=== PATIENT | male | born 1940 | race Caucasian/White ===

== ENCOUNTER 2021-10-03 02:32 | Outpatient (RCR) | payer MEDICARE, BC, SELFPAY ==
[2021-10-03] MEDS: Normal Saline Flush 10 ML SYR IVP (07:31)
[2021-10-03 07:41] LABS: Abs Immature Grans 0.05 10^3/uL (0.0-0.06); Absolute Basophil Count 0.03 10^3/uL (0.0-0.2); Absolute Eosinophil Count 0.19 10^3/uL (0.0-0.7); Absolute Lymphocyte Count 1.36 10^3/uL (1.2-3.4); Basophils % 0.4; Eosinophils % 2.2; HCT 37.1 % (40.0-50.0); Immature Grans % 0.6; Lymphocytes % 15.9; MCH 29.7 pg (27.0-33.0); MCHC 32.3 % (32.0-36.0); MCV 92 fL (80-95); Monocytes % 12.9; Platelet Count 183 10^3/uL (130-400); RBC 4.04 10^6/uL (4.36-5.78); RDW 13.2 % (11.8-14.1); RDW-SD 45.3 fL; WBC 8.53 10^3/uL (4.4-10.8)
[2021-10-03 07:53] LABS: ALT 29 U/L (16-63); AST 15 U/L (15-37); Albumin 2.7 g/dL (3.4-5.0); Alkaline Phosphatase 70 U/L (46-116); Anion Gap 4.2 mmol/L (3-11); BUN 17 mg/dL (7-18); Bilirubin, Total 0.7 mg/dL (0.2-1.0); CO2 30.8 mmol/L (21.0-32.0); CREATININE 0.8 mg/dL (0.70-1.30); Calcium 8.5 mg/dL (8.5-10.1); Chloride 102 mmol/L (98-107); Glucose 107 mg/dL (74-106); LDH 239 U/L (85-227); Potassium 3.8 mmol/L (3.5-5.1); Sodium 137 mmol/L (136-145)
== END 2021-10-07 23:59 | disposition home or self-care (01) ==
LOC: INF 02:32
PROVIDERS: PCP Internal Medicine; Visit Provider Internal Medicine Hematology & Oncology
DX: Z45.2 Encounter for adjustment and management of vascular access device (principal); C83.38 Diffuse large B-cell lymphoma, lymph nodes of multiple sites
CPT/HCPCS: 36591; 80053; 83615; 85025

== ENCOUNTER 2021-10-24 02:05 | Outpatient (RCR) | payer MEDICARE, BC, SELFPAY ==
[2021-10-24] MEDS: Normal Saline Flush 10 ML SYR IV (07:41)
[2021-10-24 07:50] LABS: Abs Immature Grans 0.01 10^3/uL (0.0-0.06); HCT 31.3 % (40.0-50.0); MCH 29.7 pg (27.0-33.0); MCHC 31.9 % (32.0-36.0); MCV 93 fL (80-95); MPV 9.1 fL (8.0-11.0); Platelet Count 338 10^3/uL (130-400); RBC 3.37 10^6/uL (4.36-5.78); RDW 14.6 % (11.8-14.1); RDW-SD 45.2 fL
[2021-10-24 08:26] LABS: WBC 1.38 10^3/uL (4.4-10.8)
[2021-10-24 08:27] LABS: Absolute Eosinophil Count 0.06 10^3/uL (0.0-0.7); Absolute Lymphocyte Count 0.83 10^3/uL (1.2-3.4); Absolute Monocyte Count 0.22 10^3/uL (0.1-0.8); Absolute Neutrophil Count 0.21 10^3/uL (1.2-6.7); Metamyelocytes % 1; Other Cells % 4
[2021-10-24 09:16] LABS: ALT 41 U/L (16-63); AST 21 U/L (15-37); Alkaline Phosphatase 80 U/L (46-116); Anion Gap 5.7 mmol/L (3-11); BUN 13 mg/dL (7-18); Bilirubin, Total 0.2 mg/dL (0.2-1.0); CO2 32.3 mmol/L (21.0-32.0); Calcium 8.5 mg/dL (8.5-10.1); Chloride 107 mmol/L (98-107); Glucose 101 mg/dL (74-106); LDH 188 U/L (85-227); Potassium 3.8 mmol/L (3.5-5.1); Sodium 145 mmol/L (136-145); Total Protein 6.6 g/dL (6.4-8.2)
== END 2021-11-07 23:59 | disposition home or self-care (01) ==
LOC: INF 02:05
PROVIDERS: PCP Internal Medicine; Visit Provider Internal Medicine Hematology & Oncology
DX: Z45.2 Encounter for adjustment and management of vascular access device (principal); C83.38 Diffuse large B-cell lymphoma, lymph nodes of multiple sites
CPT/HCPCS: 36591; 80053; 83615; 85025

== ENCOUNTER 2021-12-05 02:50 | Outpatient (RCR) | payer MEDICARE, BC, SELFPAY ==
[2021-11-14] MEDS: Normal Saline Flush 10 ML SYR IVP (08:35)
[2021-11-14 09:13] LABS: Abs Immature Grans 0.01 10^3/uL (0.0-0.06); Absolute Basophil Count 0.01 10^3/uL (0.0-0.2); Absolute Eosinophil Count 0.11 10^3/uL (0.0-0.7); Absolute Monocyte Count 0.07 10^3/uL (0.1-0.8); Absolute Neutrophil Count 1.46 10^3/uL (1.2-6.7); Basophils % 0.4; Eosinophils % 4.1; HCT 32.4 % (40.0-50.0); HGB 10.7 g/dL (13.5-17.5); Immature Grans % 0.4; Lymphocytes % 37.6; MCH 30.6 pg (27.0-33.0); MCV 93 fL (80-95); MPV 10.5 fL (8.0-11.0); Monocytes % 2.6; Neutrophils % 54.9; Platelet Count 186 10^3/uL (130-400); RDW 17.7 % (11.8-14.1); RDW-SD 60.5 fL; WBC 2.66 10^3/uL (4.4-10.8)
[2021-11-14 09:33] LABS: ALT 30 U/L (16-63); AST 13 U/L (15-37); Albumin 3.4 g/dL (3.4-5.0); Alkaline Phosphatase 68 U/L (46-116); Anion Gap 2.2 mmol/L (3-11); BUN 22 mg/dL (7-18); Bilirubin, Total 0.9 mg/dL (0.2-1.0); CO2 33.8 mmol/L (21.0-32.0); CREATININE 0.8 mg/dL (0.70-1.30); Calcium 8.7 mg/dL (8.5-10.1); Chloride 104 mmol/L (98-107); Estimated GFR 89.47 (mL/min/1.73m2); Glucose 100 mg/dL (74-106); LDH 156 U/L (85-227); Potassium 3.7 mmol/L (3.5-5.1); Sodium 140 mmol/L (136-145); Total Protein 6.6 g/dL (6.4-8.2)
[2021-11-28] MEDS: Normal Saline Flush 10 ML SYR IVP (07:13)
[2021-11-28 07:25] LABS: Abs Immature Grans 0.14 10^3/uL (0.0-0.06); Absolute Basophil Count 0.04 10^3/uL (0.0-0.2); Absolute Lymphocyte Count 1.02 10^3/uL (1.2-3.4); Absolute Monocyte Count 1.26 10^3/uL (0.1-0.8); Absolute Neutrophil Count 6.78 10^3/uL (1.2-6.7); Basophils % 0.4; Eosinophils % 1.1; HCT 30.1 % (40.0-50.0); HGB 9.6 g/dL (13.5-17.5); Immature Grans % 1.5; Lymphocytes % 10.9; MCH 31.5 pg (27.0-33.0); MCHC 31.9 % (32.0-36.0); MCV 99 fL (80-95); MPV 9.9 fL (8.0-11.0); Monocytes % 13.5; Neutrophils % 72.6; Platelet Count 362 10^3/uL (130-400); RBC 3.05 10^6/uL (4.36-5.78); RDW 20.6 % (11.8-14.1); RDW-SD 73.6 fL; WBC 9.34 10^3/uL (4.4-10.8)
[2021-11-28 07:38] LABS: Anisocytosis 2+; Diff Comment RBC Morph Reviewed; Polychromasia Present
[2021-11-28 07:42] LABS: ALT 31 U/L (16-63); AST 20 U/L (15-37); Albumin 3.4 g/dL (3.4-5.0); Alkaline Phosphatase 114 U/L (46-116); Anion Gap 6.3 mmol/L (3-11); BUN 11 mg/dL (7-18); Bilirubin, Total 0.2 mg/dL (0.2-1.0); CO2 30.7 mmol/L (21.0-32.0); CREATININE 0.9 mg/dL (0.70-1.30); Calcium 8.8 mg/dL (8.5-10.1); Chloride 106 mmol/L (98-107); Estimated GFR 86.34 (mL/min/1.73m2); Glucose 110 mg/dL (74-106); LDH 180 U/L (85-227); Potassium 3.9 mmol/L (3.5-5.1); Sodium 143 mmol/L (136-145); Total Protein 6.5 g/dL (6.4-8.2)
[2021-12-05] MEDS: Normal Saline Flush 10 ML SYR IVP (07:36)
[2021-12-05 07:58] LABS: Abs Immature Grans 0.04 10^3/uL (0.0-0.06); Absolute Eosinophil Count 0.04 10^3/uL (0.0-0.7); Absolute Lymphocyte Count 1.14 10^3/uL (1.2-3.4); Absolute Monocyte Count 0.27 10^3/uL (0.1-0.8); Absolute Neutrophil Count 3.43 10^3/uL (1.2-6.7); Eosinophils % 0.8; HCT 30.5 % (40.0-50.0); Immature Grans % 0.8; Lymphocytes % 23.2; MCH 31.4 pg (27.0-33.0); MCHC 32.8 % (32.0-36.0); MCV 96 fL (80-95); MPV 9.7 fL (8.0-11.0); Monocytes % 5.5; Neutrophils % 69.7; Platelet Count 246 10^3/uL (130-400); RBC 3.18 10^6/uL (4.36-5.78); RDW 19.1 % (11.8-14.1); RDW-SD 67.4 fL; WBC 4.92 10^3/uL (4.4-10.8)
[2021-12-05 08:15] LABS: ALT 36 U/L (16-63); AST 15 U/L (15-37); Albumin 3.5 g/dL (3.4-5.0); Alkaline Phosphatase 78 U/L (46-116); Anion Gap 5.2 mmol/L (3-11); BUN 21 mg/dL (7-18); Bilirubin, Total 0.6 mg/dL (0.2-1.0); CO2 31.8 mmol/L (21.0-32.0); CREATININE 0.8 mg/dL (0.70-1.30); Calcium 8.5 mg/dL (8.5-10.1); Chloride 102 mmol/L (98-107); Estimated GFR 89.47 (mL/min/1.73m2); Glucose 101 mg/dL (74-106); LDH 170 U/L (85-227); Potassium 3.6 mmol/L (3.5-5.1); Sodium 139 mmol/L (136-145); Total Protein 6.2 g/dL (6.4-8.2)
== END 2021-12-07 23:59 | disposition home or self-care (01) ==
LOC: INF 02:50
PROVIDERS: PCP Internal Medicine; Visit Provider Internal Medicine Hematology & Oncology
DX: Z45.2 Encounter for adjustment and management of vascular access device (principal); C83.38 Diffuse large B-cell lymphoma, lymph nodes of multiple sites
CPT/HCPCS: 36591; 80053; 83615; 85025

== ENCOUNTER 2021-12-26 02:11 | Outpatient (RCR) | payer MEDICARE, BC, SELFPAY ==
[2021-12-19] MEDS: Normal Saline Flush 10 ML SYR IVP (07:40)
[2021-12-19 07:50] LABS: Abs Immature Grans 0.41 10^3/uL (0.0-0.06); Absolute Eosinophil Count 0.11 10^3/uL (0.0-0.7); Absolute Monocyte Count 1.39 10^3/uL (0.1-0.8); Absolute Neutrophil Count 7.77 10^3/uL (1.2-6.7); Basophils % 0.5; HCT 31.2 % (40.0-50.0); Immature Grans % 3.7; Lymphocytes % 11.1; MCH 32.4 pg (27.0-33.0); MCHC 32.1 % (32.0-36.0); MCV 101 fL (80-95); MPV 9.9 fL (8.0-11.0); Monocytes % 12.7; Nucleated RBC 0.2 % (0.0-0.3); Platelet Count 272 10^3/uL (130-400); RBC 3.09 10^6/uL (4.36-5.78); RDW-SD 73.9 fL; WBC 10.95 10^3/uL (4.4-10.8)
[2021-12-19 07:58] LABS: Absolute Basophil Count 0.05 10^3/uL (0.0-0.2); Absolute Lymphocyte Count 1.22 10^3/uL (1.2-3.4)
[2021-12-19 08:13] LABS: ALT 27 U/L (16-63); AST 16 U/L (15-37); Albumin 3.6 g/dL (3.4-5.0); Alkaline Phosphatase 111 U/L (46-116); Anion Gap 5.5 mmol/L (3-11); BUN 13 mg/dL (7-18); Bilirubin, Total 0.2 mg/dL (0.2-1.0); CO2 31.5 mmol/L (21.0-32.0); CREATININE 0.8 mg/dL (0.70-1.30); Calcium 8.6 mg/dL (8.5-10.1); Chloride 106 mmol/L (98-107); Estimated GFR 88.91 (mL/min/1.73m2); Glucose 95 mg/dL (74-106); LDH 180 U/L (85-227); Potassium 3.8 mmol/L (3.5-5.1); Sodium 143 mmol/L (136-145); Total Protein 6.4 g/dL (6.4-8.2)
[2021-12-26] MEDS: Normal Saline Flush 10 ML SYR IVP (07:38)
[2021-12-26 07:57] LABS: Abs Immature Grans 0.02 10^3/uL (0.0-0.06); Absolute Basophil Count 0.05 10^3/uL (0.0-0.2); Absolute Eosinophil Count 0.03 10^3/uL (0.0-0.7); Absolute Monocyte Count 0.36 10^3/uL (0.1-0.8); Absolute Neutrophil Count 1.95 10^3/uL (1.2-6.7); Basophils % 1.6; HCT 28.8 % (40.0-50.0); HGB 9.3 g/dL (13.5-17.5); Immature Grans % 0.6; Lymphocytes % 22.5; MCH 32.4 pg (27.0-33.0); MCHC 32.3 % (32.0-36.0); MCV 100 fL (80-95); MPV 9.7 fL (8.0-11.0); Monocytes % 11.6; Neutrophils % 62.7; Platelet Count 198 10^3/uL (130-400); RBC 2.87 10^6/uL (4.36-5.78); RDW 17.6 % (11.8-14.1); RDW-SD 65.4 fL; WBC 3.11 10^3/uL (4.4-10.8)
[2021-12-26 08:16] LABS: ALT 67 U/L (16-63); AST 44 U/L (15-37); Albumin 3.6 g/dL (3.4-5.0); Alkaline Phosphatase 81 U/L (46-116); BUN 16 mg/dL (7-18); Bilirubin, Total 0.5 mg/dL (0.2-1.0); CREATININE 0.7 mg/dL (0.70-1.30); Calcium 8.7 mg/dL (8.5-10.1); Chloride 108 mmol/L (98-107); Estimated GFR 92.57 (mL/min/1.73m2); Glucose 96 mg/dL (74-106); LDH 194 U/L (85-227); Sodium 144 mmol/L (136-145); Total Protein 6.4 g/dL (6.4-8.2)
== END 2022-01-07 23:59 | disposition home or self-care (01) ==
LOC: INF 02:11
PROVIDERS: PCP Internal Medicine; Visit Provider Internal Medicine Hematology & Oncology
DX: C83.38 Diffuse large B-cell lymphoma, lymph nodes of multiple sites (principal); Z45.2 Encounter for adjustment and management of vascular access device
CPT/HCPCS: 36591; 80053; 83615; 85025

== ENCOUNTER 2022-01-30 10:00 | Outpatient (RCR) | payer MEDICARE, BC, SELFPAY ==
[2022-01-09] MEDS: Normal Saline Flush 10 ML SYR IVP (07:38)
[2022-01-09 07:48] LABS: Abs Immature Grans 0.03 10^3/uL (0.0-0.06); Absolute Basophil Count 0.02 10^3/uL (0.0-0.2); Absolute Eosinophil Count 0.11 10^3/uL (0.0-0.7); Absolute Lymphocyte Count 0.72 10^3/uL (1.2-3.4); Absolute Monocyte Count 0.74 10^3/uL (0.1-0.8); Absolute Neutrophil Count 2.94 10^3/uL (1.2-6.7); Basophils % 0.4; Eosinophils % 2.4; HCT 25.9 % (40.0-50.0); HGB 8.4 g/dL (13.5-17.5); Immature Grans % 0.7; Lymphocytes % 15.8; MCH 33.3 pg (27.0-33.0); MCHC 32.4 % (32.0-36.0); MCV 103 fL (80-95); MPV 10.6 fL (8.0-11.0); Monocytes % 16.2; Neutrophils % 64.5; Platelet Count 132 10^3/uL (130-400); RBC 2.52 10^6/uL (4.36-5.78); RDW 17.8 % (11.8-14.1); RDW-SD 66.3 fL; WBC 4.56 10^3/uL (4.4-10.8)
[2022-01-09 08:05] LABS: ALT 25 U/L (16-63); AST 17 U/L (15-37); Albumin 3.6 g/dL (3.4-5.0); Alkaline Phosphatase 103 U/L (46-116); Anion Gap 3.7 mmol/L (3-11); BUN 13 mg/dL (7-18); Bilirubin, Total 0.4 mg/dL (0.2-1.0); CO2 31.3 mmol/L (21.0-32.0); CREATININE 0.8 mg/dL (0.70-1.30); Calcium 8.7 mg/dL (8.5-10.1); Chloride 107 mmol/L (98-107); Estimated GFR 88.91 (mL/min/1.73m2); Glucose 95 mg/dL (74-106); LDH 159 U/L (85-227); Potassium 3.8 mmol/L (3.5-5.1); Sodium 142 mmol/L (136-145); Total Protein 6.4 g/dL (6.4-8.2)
[2022-01-16] MEDS: Normal Saline Flush 10 ML SYR IVP (07:53)
[2022-01-16 08:06] LABS: Abs Immature Grans 0.03 10^3/uL (0.0-0.06); Absolute Basophil Count 0.03 10^3/uL (0.0-0.2); Absolute Eosinophil Count 0.06 10^3/uL (0.0-0.7); Absolute Lymphocyte Count 0.51 10^3/uL (1.2-3.4); Absolute Monocyte Count 0.21 10^3/uL (0.1-0.8); Absolute Neutrophil Count 1.83 10^3/uL (1.2-6.7); Basophils % 1.1; Eosinophils % 2.2; HCT 24.4 % (40.0-50.0); Immature Grans % 1.1; Lymphocytes % 19.1; MCH 34.5 pg (27.0-33.0); MCHC 32.8 % (32.0-36.0); MCV 105 fL (80-95); Monocytes % 7.9; Neutrophils % 68.6; Platelet Count 146 10^3/uL (130-400); RBC 2.32 10^6/uL (4.36-5.78); RDW 16.1 % (11.8-14.1); RDW-SD 62.4 fL; WBC 2.67 10^3/uL (4.4-10.8)
[2022-01-16 08:16] LABS: ALT 50 U/L (16-63); AST 38 U/L (15-37); Albumin 3.7 g/dL (3.4-5.0); Alkaline Phosphatase 88 U/L (46-116); Anion Gap 7.7 mmol/L (3-11); BUN 20 mg/dL (7-18); Bilirubin, Total 0.4 mg/dL (0.2-1.0); CO2 30.3 mmol/L (21.0-32.0); CREATININE 0.7 mg/dL (0.70-1.30); Calcium 8.6 mg/dL (8.5-10.1); Chloride 107 mmol/L (98-107); Estimated GFR 92.57 (mL/min/1.73m2); Glucose 104 mg/dL (74-106); LDH 174 U/L (85-227); Potassium 3.6 mmol/L (3.5-5.1); Sodium 145 mmol/L (136-145); Total Protein 6.3 g/dL (6.4-8.2)
[2022-01-30] MEDS: Normal Saline Flush 10 ML SYR IVP ×2 (08:10→10:15)
[2022-01-30 08:29] LABS: Abs Immature Grans 0.03 10^3/uL (0.0-0.06); Absolute Basophil Count 0.03 10^3/uL (0.0-0.2); Absolute Eosinophil Count 0.13 10^3/uL (0.0-0.7); Absolute Lymphocyte Count 0.74 10^3/uL (1.2-3.4); Absolute Monocyte Count 1.09 10^3/uL (0.1-0.8); Absolute Neutrophil Count 3.78 10^3/uL (1.2-6.7); Basophils % 0.5; Eosinophils % 2.2; HGB 7.4 g/dL (13.5-17.5); Immature Grans % 0.5; Lymphocytes % 12.8; MCH 34.6 pg (27.0-33.0); MCHC 32.2 % (32.0-36.0); MCV 108 fL (80-95); Monocytes % 18.8; Neutrophils % 65.2; Platelet Count 171 10^3/uL (130-400); RBC 2.14 10^6/uL (4.36-5.78); RDW 16.5 % (11.8-14.1); RDW-SD 61.9 fL
[2022-01-30 08:49] LABS: ALT 21 U/L (16-63); AST 20 U/L (15-37); Albumin 3.6 g/dL (3.4-5.0); Alkaline Phosphatase 98 U/L (46-116); BUN 13 mg/dL (7-18); Bilirubin, Total 0.3 mg/dL (0.2-1.0); CREATININE 0.8 mg/dL (0.70-1.30); Calcium 8.5 mg/dL (8.5-10.1); Chloride 105 mmol/L (98-107); Estimated GFR 88.91 (mL/min/1.73m2); Glucose 94 mg/dL (74-106); LDH 158 U/L (85-227); Potassium 3.6 mmol/L (3.5-5.1); Sodium 141 mmol/L (136-145); Total Protein 6.3 g/dL (6.4-8.2)
[2022-01-30 10:30] VITALS: BP 131/64; PULSE 64; RESP 16; TEMP 36.6; O2SAT 93
[2022-01-30 10:45] VITALS: BP 107/57; PULSE 61; RESP 16; TEMP 36.9; O2SAT 94
[2022-01-30 11:00] VITALS: BP 110/51; PULSE 60; RESP 16; TEMP 36.7; O2SAT 93
[2022-01-30 11:30] VITALS: BP 114/52; PULSE 63; RESP 17; TEMP 36.5; O2SAT 94
[2022-01-30 12:35] VITALS: BP 128/60; PULSE 56; RESP 17; TEMP 37; O2SAT 96
[2022-01-30] MEDS: Heparin 500 UNITS/5 ML SYRINGE IV (12:35)
== END 2022-02-06 23:59 | disposition home or self-care (01) ==
LOC: INF 10:00
PROVIDERS: PCP Internal Medicine; Visit Provider Internal Medicine Hematology & Oncology
DX: C83.38 Diffuse large B-cell lymphoma, lymph nodes of multiple sites (principal); Z45.2 Encounter for adjustment and management of vascular access device
CPT/HCPCS: 36430; 36591; 80053; 86850; 86900; 86901; 86920; 83615; 85025; P9016

== ENCOUNTER 2022-02-19 01:52 | Outpatient (RCR) | payer MEDICARE, BC, SELFPAY ==
[2022-02-07 00:15] VITALS: BP 128/60; PULSE 56; RESP 17; TEMP 37
[2022-02-19] MEDS: Normal Saline Flush 10 ML SYR IVP (10:10)
[2022-02-19 10:23] LABS: Abs Immature Grans 0.01 10^3/uL (0.0-0.06); Absolute Basophil Count 0.05 10^3/uL (0.0-0.2); Absolute Lymphocyte Count 0.59 10^3/uL (1.2-3.4); Absolute Monocyte Count 0.68 10^3/uL (0.1-0.8); Absolute Neutrophil Count 2.26 10^3/uL (1.2-6.7); Basophils % 1.4; Eosinophils % 2.7; HCT 34.4 % (40.0-50.0); HGB 10.8 g/dL (13.5-17.5); Immature Grans % 0.3; MCH 33.1 pg (27.0-33.0); MCHC 31.4 % (32.0-36.0); MCV 106 fL (80-95); MPV 10.2 fL (8.0-11.0); Monocytes % 18.4; Neutrophils % 61.2; Platelet Count 158 10^3/uL (130-400); RBC 3.26 10^6/uL (4.36-5.78); RDW 14.2 % (11.8-14.1); RDW-SD 55.5 fL; WBC 3.69 10^3/uL (4.4-10.8)
[2022-02-19] MEDS: Heparin 500 UNITS/5 ML SYRINGE IV (10:31)
[2022-02-19 10:40] LABS: ALT 19 U/L (16-63); AST 20 U/L (15-37); Albumin 3.8 g/dL (3.4-5.0); Alkaline Phosphatase 73 U/L (46-116); Anion Gap 5.9 mmol/L (3-11); BUN 16 mg/dL (7-18); Bilirubin, Total 0.6 mg/dL (0.2-1.0); CO2 30.1 mmol/L (21.0-32.0); CREATININE 0.8 mg/dL (0.70-1.30); Calcium 8.7 mg/dL (8.5-10.1); Chloride 104 mmol/L (98-107); Estimated GFR 88.91 (mL/min/1.73m2); Glucose 102 mg/dL (74-106); LDH 142 U/L (85-227); Potassium 3.8 mmol/L (3.5-5.1); Sodium 140 mmol/L (136-145); Total Protein 6.8 g/dL (6.4-8.2)
== END 2022-03-09 23:59 | disposition home or self-care (01) ==
LOC: INF 01:52
PROVIDERS: PCP Internal Medicine; Visit Provider Internal Medicine Hematology & Oncology
DX: D63.8 Anemia in other chronic diseases classified elsewhere (principal); Z45.2 Encounter for adjustment and management of vascular access device
CPT/HCPCS: 36591; 80053; 86900; 86901; 83615; 85025

== ENCOUNTER 2022-05-08 02:18 | Outpatient (RCR) | payer MEDICARE, BC, SELFPAY ==
[2022-05-08 10:39] LABS: Absolute Basophil Count 0.04 10^3/uL (0.0-0.2); Absolute Eosinophil Count 0.18 10^3/uL (0.0-0.7); Absolute Monocyte Count 0.56 10^3/uL (0.1-0.8); Absolute Neutrophil Count 2.19 10^3/uL (1.2-6.7); Basophils % 1.1; Eosinophils % 4.9; HCT 39.5 % (40.0-50.0); HGB 12.9 g/dL (13.5-17.5); Lymphocytes % 19.1; MCH 31.3 pg (27.0-33.0); MCHC 32.7 % (32.0-36.0); MCV 96 fL (80-95); MPV 10.2 fL (8.0-11.0); Monocytes % 15.3; Neutrophils % 59.6; Platelet Count 143 10^3/uL (130-400); RBC 4.12 10^6/uL (4.36-5.78); RDW 12.1 % (11.8-14.1); RDW-SD 42.8 fL; WBC 3.67 10^3/uL (4.4-10.8)
[2022-05-08] MEDS: Normal Saline Flush 10 ML SYR IVP (10:39)
[2022-05-08] MEDS: Heparin 500 UNITS/5 ML SYRINGE IV (10:39)
[2022-05-08 11:03] LABS: ALT 22 U/L (16-63); AST 19 U/L (15-37); Albumin 3.7 g/dL (3.4-5.0); Alkaline Phosphatase 69 U/L (46-116); Anion Gap 5.4 mmol/L (3-11); BUN 15 mg/dL (7-18); Bilirubin, Total 0.6 mg/dL (0.2-1.0); CO2 30.6 mmol/L (21.0-32.0); Calcium 8.8 mg/dL (8.5-10.1); Chloride 105 mmol/L (98-107); Estimated GFR 75.61 (mL/min/1.73m2); Glucose 121 mg/dL (74-106); LDH 147 U/L (85-227); Potassium 3.7 mmol/L (3.5-5.1); Sodium 141 mmol/L (136-145); Total Protein 6.8 g/dL (6.4-8.2)
== END 2022-06-07 23:59 | disposition home or self-care (01) ==
LOC: INF 02:18
PROVIDERS: PCP Internal Medicine; Visit Provider Internal Medicine Hematology & Oncology
DX: C83.38 Diffuse large B-cell lymphoma, lymph nodes of multiple sites (principal); Z45.2 Encounter for adjustment and management of vascular access device
CPT/HCPCS: 36591; 80053; 83615; 85025

== ENCOUNTER 2023-04-16 02:27 | Outpatient (RCR) | payer MEDICARE, BC, SELFPAY ==
[2023-04-16 10:45] LABS: Abs Immature Grans 0.01 10^3/uL (0.0-0.06); Absolute Basophil Count 0.03 10^3/uL (0.0-0.2); Absolute Lymphocyte Count 0.79 10^3/uL (1.2-3.4); Absolute Monocyte Count 0.51 10^3/uL (0.1-0.8); Absolute Neutrophil Count 2.12 10^3/uL (1.2-6.7); Basophils % 0.8; Eosinophils % 2.8; HCT 40.3 % (40.0-50.0); HGB 13.6 g/dL (13.5-17.5); Immature Grans % 0.3; Lymphocytes % 22.2; MCH 32.6 pg (27.0-33.0); MCHC 33.7 % (32.0-36.0); MCV 97 fL (80-95); MPV 10.3 fL (8.0-11.0); Monocytes % 14.3; Neutrophils % 59.6; Platelet Count 139 10^3/uL (130-400); RBC 4.17 10^6/uL (4.36-5.78); RDW 11.9 % (11.8-14.1); RDW-SD 42.5 fL; WBC 3.56 10^3/uL (4.4-10.8)
[2023-04-16 10:58] LABS: ALT 24 U/L (16-63); AST 18 U/L (15-37); Albumin 3.7 g/dL (3.4-5.0); Alkaline Phosphatase 56 U/L (46-116); Anion Gap 6.2 mmol/L (3-11); BUN 16 mg/dL (7-18); Bilirubin, Total 0.8 mg/dL (0.2-1.0); CO2 29.8 mmol/L (21.0-32.0); CREATININE 0.9 mg/dL (0.70-1.30); Calcium 8.8 mg/dL (8.5-10.1); Chloride 106 mmol/L (98-107); Estimated GFR 85.27 (mL/min/1.73m2); Glucose 102 mg/dL (74-106); LDH 149 U/L (85-227); Potassium 3.9 mmol/L (3.5-5.1); Sodium 142 mmol/L (136-145); Total Protein 7.1 g/dL (6.4-8.2)
[2023-04-16] MEDS: Normal Saline Flush 10 ML SYR IVP (11:12)
== END 2023-05-08 23:59 | disposition home or self-care (01) ==
LOC: INF 02:27
PROVIDERS: PCP Internal Medicine; Visit Provider Internal Medicine Hematology & Oncology
DX: C83.38 Diffuse large B-cell lymphoma, lymph nodes of multiple sites (principal); Z45.2 Encounter for adjustment and management of vascular access device
CPT/HCPCS: 36591; 80053; 83615; 85025

== ENCOUNTER 2024-01-26 00:55 | Outpatient (CLI) | payer MEDICARE, BC, SELFPAY ==
[2024-01-26] MEDS: Omnipaque 350 MG/ML 500 ML BTL-Imaging package IJ (10:10)
[2024-01-26] MEDS: Normal Saline - Diluent 50 ML VIAL IJ (10:12)
--- NOTE | 2024-01-26 10:25 | DI.CT_ITS ---
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 TECHNIQUE: Multi planar reconstructions were performed. CONTRAST MATERIAL: Omnipaque 350; 75 cc COMPARISON: CT CT CHEST ABDOMEN PELVIS W CONTRAST (GENERIC) from 05/19/2023 FINDINGS: CHEST: LUNGS: Previously described bandlike infiltrate in the right lower lobe is again noted. It has sligh tly decreased in size in the lateral basal segment of the right lower lobe but slightly increased in size in the posterior basal segment of the right lower lobe. It is again not associated with the ple ural effusion. Two benign fissure related nodules in the right lung are unchanged. There are no new significant findings in the right upper lobe and right middle lobe. Although this is a non CT a study, on a few images there is suggestion of possible pulmonary emboli i n right lower lobe vessels. In the opposite-left lung the amount of atelectasis in the lingular segment has slightly decreased. There are no new areas of infiltrate in the left lung and no pleural effusion. No new findings in th e trachea and mainstem bronchi. MEDIASTINUM: There is no hilar nor mediastinal adenopathy. Visualized thyroid unremarkable.Distal tip of the right-sided Port-A-Cath is in the upper right atrium CARDIAC: Heart size is normal. There is no pericardial effusion.Caliber of the thoracic aorta is wit hin upper normal limits. VISUALIZED UPPER ABDOMEN:There are no significant adrenal masses. Spleen size normal. Gallbladder s urgically absent. OSSEOUS: No significant osseous lesions.No fractures. . IMPRESSION: 1. Compared to the outside CT scan of 05/19/2023 the right lower lobe infiltrate has slightly changed in that the amount in the lateral basal segment of the right lower lobe has decreased but the amount in the posterior basal segment of the right lower lobe has slightly increased. Overall size is rela tively similar to previous. 2. Mild atelectasis in the lingular segment of the left lung again noted. No new left lung findings. 3. No pleural effusions on either side. No hilar nor mediastinal adenopathy evident. 4. Although this is not a CT a study, there is subtle suggestion of intraluminal filling defects in right lower lobe vessels which may indicate presence of pulmonary emboli. Appropriate further imagin g recommended. RADIATION DOSE DELIVERED: 193.56mGy.cm Total DLP DATA REPOSITORY: All CT scans at this facility are submitted to the National Radiology Data Registry (NRDR) Dose Index Registry (DIR) with the [employer] ([employer]). RADIATION OPTIMIZATION: All CT scans at this facility use at least one of these dose optimization te chniques: automated exposure control; mA and/or kV adjustment per patient size (includes targeted exa ms where dose is matched to clinical indication); or iterative reconstruction.
== END 2024-01-26 01:15 ==
LOC: DI 00:55
PROVIDERS: PCP Emergency Medicine Undersea and Hyperbaric Medicine; Visit Provider Internal Medicine Hematology & Oncology
DX: J18.9 Pneumonia, unspecified organism (principal); C83.38 Diffuse large B-cell lymphoma, lymph nodes of multiple sites
CPT/HCPCS: 36591; 80053; 71260; 83615; 85025

== ENCOUNTER 2024-01-28 13:28 | Outpatient (CLI) | payer MEDICARE, BC, SELFPAY ==
--- NOTE | 2024-01-28 | DI.CT_ITS ---
Exam(s) CT CHEST PE CTA EXAM: CT CHEST PE CTA CLINICAL HISTORY: J18.9,C83.38 FU concern RLL PE seen on noncontrast CT 01-26-24. TECHNIQUE: Imaging Protocol: CT angiography of the chest was performed using pulmonary embolus eliseo col. Multi planar reconstructions were performed. CONTRAST MATERIAL: Intravenous: Omnipaque 350 Contrast volume: 100 cc COMPARISON: CT CT CHEST W from 01/26/2024 FINDINGS: CHEST: PULMONARY ARTERIES: There are no intraluminal filling defects to suggest acute pulmonary emboli.The a jesús of concern described on the recent contrast infused but non CTA study of 01/26/2024 does not exhi bit evidence of significant intraluminal filling defect on the present dedicated CT angiogram study. Also no intraluminal filling defects elsewhere in either lung field. LUNGS: The bandlike infiltrate in the right lower lobe is again noted, unchanged from 01/26/2024. No associated pleural effusion. No findings in the right upper and right middle lobes. Two small lizz gn-appearing fissure related right lung nodules are unchanged. In the opposite-left lung the amount of atelectasis in the lingular segment appears unchanged. No ad ditional new left lung findings. No pleural effusions on either side. No significant findings in th e trachea and mainstem bronchi. MEDIASTINUM: There is no hilar nor mediastinal adenopathy. Visualized thyroid unremarkable. CARDIAC: Heart size is upper normal. There is no pericardial effusion.Caliber of the thoracic aorta is within normal limits. There is no significant shift of the interventricular septum. PARTIALLY VISUALIZED UPPERMOST ABDOMEN: Gallbladder is again noted be surgically absent. No adrenal findings. OSSEOUS: No significant osseous lesions.. IMPRESSION: 1. No evidence of acute pulmonary emboli. 2. Other findings as above which are unchanged from recent CT scan of 01/26/2024 3. There are no pleural effusions. RADIATION DOSE DELIVERED: 139.21mGy.cm Total DLP DATA REPOSITORY: All CT scans at this facility are submitted to the National Radiology Data Registry (NRDR) Dose Index Registry (DIR) with the [employer] ([employer]). RADIATION OPTIMIZATION: All CT scans at this facility use at least one of these dose optimization te chniques: automated exposure control; mA and/or kV adjustment per patient size (includes targeted exa ms where dose is matched to clinical indication); or iterative reconstruction.
[2024-01-28] MEDS: Normal Saline - Diluent 50 ML VIAL IJ (15:04)
[2024-01-28] MEDS: Omnipaque 350 MG/ML 100 ML BTL IJ (15:05)
== END 2024-01-28 13:48 ==
LOC: DI 13:29
PROVIDERS: PCP Emergency Medicine Undersea and Hyperbaric Medicine; Visit Provider Internal Medicine Hematology & Oncology
DX: J18.9 Pneumonia, unspecified organism (principal); C83.38 Diffuse large B-cell lymphoma, lymph nodes of multiple sites
CPT/HCPCS: 71275; 96523; J3490

== ENCOUNTER 2024-01-28 14:00 | Outpatient (RCR) | payer MEDICARE, BC, SELFPAY ==
[2024-01-26] MEDS: Normal Saline Flush 10 ML SYR IVP (09:12)
[2024-01-26 09:39] LABS: ALT 23 U/L (16-63); AST 19 U/L (15-37); Albumin 3.7 g/dL (3.4-5.0); Alkaline Phosphatase 63 U/L (46-116); Anion Gap 4.4 mmol/L (3-11); BUN 16 mg/dL (7-18); Bilirubin, Total 0.76 mg/dL (0.2-1.0); CO2 31.6 mmol/L (21.0-32.0); CREATININE 0.9 mg/dL (0.70-1.30); Calcium 8.8 mg/dL (8.5-10.1); Chloride 107 mmol/L (98-107); Estimated GFR 84.74 (mL/min/1.73m2); Glucose 97 mg/dL (74-106); LDH 150 U/L (85-227); Potassium 3.9 mmol/L (3.5-5.1); Sodium 143 mmol/L (136-145); Total Protein 7.3 g/dL (6.4-8.2)
== END 2024-02-07 23:59 | disposition home or self-care (01) ==
LOC: INF 14:00
PROVIDERS: Nurse Practitioner Adult Health; PCP Emergency Medicine Undersea and Hyperbaric Medicine; Visit Provider Internal Medicine Hematology & Oncology
DX: C83.38 Diffuse large B-cell lymphoma, lymph nodes of multiple sites (principal); Z45.2 Encounter for adjustment and management of vascular access device
CPT/HCPCS: 36591; 80053; 96523; 83615

== ENCOUNTER 2024-02-12 01:38 | Outpatient (CLI) | payer MEDICARE, BC, SELFPAY ==
--- NOTE | 2024-02-12 09:11 | DI.RAD_ITS ---
Exam(s) XR CHEST 2V PA LATERAL EXAM: XR CHEST 2V PA LATERAL CLINICAL HISTORY: RML pneumonia d/t infectious organism, J18.9; diffuse large B-cell lymphoma TECHNIQUE: 2D digital imaging was performed. Two views. COMPARISON: CT CT CHEST PE CTA from 01/28/2024 FINDINGS: HEART: Normal size. Aorta: Not dilated. PULMONARY VASCULATURE: Normal. MEDIASTINUM: Unremarkable. LUNGS: Linear densities are noted posteriorly above the diaphragm. No infiltrate is visible. No vis ible mass. PLEURAL SPACE: No pleural effusion or pneumothorax. BONE:Unremarkable for age. SOFT TISSUES: Port over right upper chest. IMPRESSION: Linear scarring at the lung bases. No infiltrate is visible. DATA REPOSITORY: RADIATION DOSE DELIVERED:
== END 2024-02-12 01:58 ==
LOC: DI 01:39
PROVIDERS: PCP Emergency Medicine Undersea and Hyperbaric Medicine; Visit Provider Internal Medicine Hematology & Oncology
DX: C83.38 Diffuse large B-cell lymphoma, lymph nodes of multiple sites (principal)
CPT/HCPCS: 71046